=== PATIENT | female | born 2000 | race Two or more races ===

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

== ENCOUNTER 2019-09-08 12:43 | Emergency (ER) | payer OTHER ==
[~2019-09-08] VITALS: Ht 152.4 cm; Wt 51.4 kg
[~2019-09-08 12:43] MED LIST: CEPH500C PO
[2019-09-08] MEDS ORDERED: IV NORMAL SALINE 1,000ML 1,000 ML IV SCH (12:53)
--- NOTE | 2019-09-08 12:57 | PHYS DOC ---
Past History Past Medical History: No Pertinent History Past Surgical History: No Surgical History Alcohol Use: None Drug Use: None General Adult EDM: Chief Complaint: ABDOMINAL PAIN HPI: HPI: Patient is a 19 year old female who presents for evaluation of suprapubic and right lower abdominal discomfort. Onset since this morning but was significantly worse since about 11:30 PM today. Patient complains of some vaginal discharge and some spotting. Patient has nausea but no vomiting. Patient has some burning, urgency and frequency with urination. Patient's last menstrual period was July 02. Patient has not taken a home test. Review of Systems: Review of Systems: Constitutional: Denies fever or chills Eyes: Denies change in visual acuity HENT: Denies nasal congestion or sore throat Respiratory: Denies cough or shortness of breath Cardiovascular: Denies chest pain or edema GI: has abdominal pain and nausea, no vomiting, no bloody stools or diarrhea : has dysuria, some vaginal discharge and spotting Musculoskeletal: Denies back pain or joint pain Integument: Denies rash Neurologic: Denies headache, focal weakness or sensory changes Endocrine: Denies polyuria or polydipsia Lymphatic: Denies swollen glands Psychiatric: Denies depression or anxiety Heart Score: Risk Factors: Risk Factors: DM, Current or recent (<one month) smoker, HTN, HLP, family history of CAD, obesity. Risk Scores: Score 0 - 3: 2.5% MACE over next 6 weeks - Discharge Home Score 4 - 6: 20.3% MACE over next 6 weeks - Admit for Clinical Observation Score 7 - 10: 72.7% MACE over next 6 weeks - Early Invasive Strategies Allergies: Allergies: Allergies Coded Allergies Type Severity Reaction Last Updated Verified No Known Drug Allergies 11/11/18 No Physical Exam: PE: Constitutional: Well developed, well nourished, mild acute distress, non-toxic appearance. [] HENT: Normocephalic, atraumatic, bilateral external ears normal, oropharynx moist, no oral exudates, nose normal. [] Eyes: PERRL, EOMI, conjunctiva normal, no discharge. [] Neck: Normal range of motion, no tenderness, supple [] Cardiovascular:Heart rate regular rhythm, no murmur [] Lungs & Thorax: Bilateral breath sounds clear to auscultation [] Abdomen: Bowel sounds normal, soft, right lower abd tenderness, no masses, no pulsatile masses. [] Skin: Warm, dry, no erythema, no rash. [] Back: No tenderness, no CVA tenderness. [] Extremities: No tenderness, no cyanosis, ROM intact, no edema. [] Neurologic: Alert and oriented X 3, normal motor function, normal sensory function, no focal deficits noted. [] Psychologic: Affect normal, judgement normal, mood normal. 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, white thick discharge present, office closed, no blood present, right adnexal tenderness [] Current Patient Data: Labs: Laboratory Tests Test 09/08/19 12:51 09/08/19 13:09 Urine Collection Type Unknown Urine Color Yellow Urine Clarity Hazy Urine pH 5.5 Urine Specific [place] 1.025 Urine Protein 100 mg/dl Urine Glucose (UA) Neg mg/dL Urine Ketones (Stick) Neg mg/dL Urine Blood Mod Urine Nitrite Neg Urine Bilirubin Neg Urine Urobilinogen Dipstick 0.2 mg/dL Urine Leukocyte Esterase Mod Urine RBC 6-10 /HPF Urine WBC Tntc /HPF Urine Squamous Epithelial Cells Few /LPF Urine Bacteria Few /HPF Urine Mucus Slight /LPF White Blood Count 9.5 x10^3/uL Red Blood Count 4.41 x10^6/uL Hemoglobin 13.6 g/dL Hematocrit 40.0 % Mean Corpuscular Volume 91 fL Mean Corpuscular Hemoglobin 31 pg Mean Corpuscular Hemoglobin Concent 34 g/dL Red Cell Distribution Width 13.2 % Platelet Count 242 x10^3/uL Neutrophils (%) (Auto) 75 % Lymphocytes (%) (Auto) 18 % Monocytes (%) (Auto) 6 % Eosinophils (%) (Auto) 1 % Basophils (%) (Auto) 0 % Neutrophils # (Auto) 7.2 x10^3uL Lymphocytes # (Auto) 1.7 x10^3/uL Monocytes # (Auto) 0.6 x10^3/uL Eosinophils # (Auto) 0.1 x10^3/uL Basophils # (Auto) 0.0 x10^3/uL Sodium Level 138 mmol/L Potassium Level 3.4 mmol/L Chloride Level 104 mmol/L Carbon Dioxide Level 26 mmol/L Anion Gap 8 Blood Urea Nitrogen 8 mg/dL Creatinine 0.7 mg/dL Estimated GFR (Cockcroft-Gault) 106.7 BUN/Creatinine Ratio 11 Glucose Level 94 mg/dL Calcium Level 8.8 mg/dL Total Bilirubin 2.1 mg/dL Aspartate Amino Transf (AST/SGOT) 18 U/L Alanine Aminotransferase (ALT/SGPT) 20 U/L Alkaline Phosphatase 86 U/L Total Protein 7.1 g/dL Albumin 3.9 g/dL Albumin/Globulin Ratio 1.2 Serum Test, Qualitative Negative Current Medications Medications (Trade) Dose Ordered Sig/Narciso Route PRN Reason Start Time Stop Time Status Last Admin Dose Admin Sodium Chloride 1,000 ml @ 1,000 mls/hr Q1H IV 09/08/19 12:53 09/08/19 13:52 DC Ceftriaxone Sodium 1 gm/ Sodium Chloride 50 ml @ 100 mls/hr 1X ONCE IV 09/08/19 14:00 09/08/19 14:29 Azithromycin (Zithromax) 1,000 mg 1X ONCE PO 09/08/19 14:00 09/08/19 14:01 EKG: EKG: [] Radiology/Procedures: Radiology/Procedures: [] Course & Med Decision Making: Course & Med Decision Making Pertinent Labs and Imaging studies reviewed. (See chart for details) [] Dragon Disclaimer: Dragon Disclaimer: This electronic medical record was generated, in whole or in part, using a voice recognition dictation system. 1405 stable, pain controlled at this time. Patient is not . Remainder of lab work is stable. Patient treated for presumed vaginitis. Here at this hospital she received Rocephin and Zithromax. Prescription for Flagyl and D iflucan given. I do not suspect appendicitis based upon location of pain being suprapubic as well as no guarding or rebounding. Patient white blood cell count is normal. Furthermore patient has a bladder infection Departure Departure: Impression: Primary Impression: Suprapubic pain Additional Impressions: Acute UTI Vaginitis Disposition: HOME/RESIDENCE PRIOR TO ADM Condition: STABLE Referrals: PCP,NO (PCP) ANA URIARTE MD Patient Instructions: Urinary Tract Infection, Vaginitis, [id number] Additional Instructions: Pelvic rest for several days or a week until symptoms resolve, drink plenty fluids, take medication as directed. You do have a bladder infection in a ddition to a vaginal discharge. Scripts Cephalexin (CEPHALEXIN) 500 Mg Tablet 1 TAB PO QID for UTI for 7 Days, #28 TAB Prov: GARTH ZAMUDIO DO 09/08/19 Fluconazole (DIFLUCAN) 150 Mg Tablet 1 TAB PO ONCE for vaginitis, #1 TAB 1 Refill Prov: GARTH ZAMUDIO DO 09/08/19 Metronidazole (FLAGYL) 500 Mg Tablet 1 TAB PO BID for vaginitis, #14 TAB Prov: GARTH ZAMUDIO DO 09/08/19 Justification of Admission: Justification of Admission: Justification of Admission Dx: N/A GARTH ZAMUDIO DO Sep 08, 2019 12:57
[2019-09-08 13:12] VITALS: BP 120/81
[2019-09-08 13:27] LABS: BASO % 0 % (0-3); EOS # 0.1 x10^3/uL (0.0-0.7); EOS % 1 % (0-3); HEMOGLOBIN 13.6 g/dL (12.0-15.5); LYMPH # 1.7 x10^3/uL (1.0-4.8); LYMPH % 18 % (24-48); MEAN CORPUSCULAR HEMOGLOBIN 31 pg (25-35); MEAN CORPUSCULAR HGB CONC 34 g/dL (31-37); MEAN CORPUSCULAR VOLUME 91 fL (79-100); MONO # 0.6 x10^3/uL (0.0-1.1); MONO % 6 % (0-9); NEUT # 7.2 x10^3uL (1.8-7.7); NEUT % 75 % (31-73); PLATELET COUNT 242 x10^3/uL (140-400); RED BLOOD COUNT 4.41 x10^6/uL (3.50-5.40); RED CELL DISTRIBUTION WIDTH 13.2 % (11.5-14.5); WHITE BLOOD COUNT 9.5 x10^3/uL (4.0-11.0)
[2019-09-08 13:29] LABS: BILIRUBIN,URINE NEG (NEG); CLARITY,URINE HAZY; COLOR,URINE YELLOW; GLUCOSE,URINE NEG (NEG)
[2019-09-08 13:30] LABS: BACTERIA,URINE FEW /HPF (0-FEW); NITRITE,URINE NEG (NEG); SQUAMOUS EPITHELIAL CELL,UR FEW /LPF; UROBILINOGEN,URINE 0.2 mg/dL (0.2 mg/dL); WBC,URINE TNTC /HPF (0-4)
[2019-09-08 13:39] LABS: PREG TEST PT QUAL NEGATIVE (NEG)
[2019-09-08 13:40] LABS: CALCIUM 8.8 mg/dL (8.5-10.1); CREATININE 0.7 mg/dL (0.6-1.0); GFR 106.7; POTASSIUM 3.4 mmol/L (3.5-5.1)
[2019-09-08 13:47] LABS: ALBUMIN 3.9 g/dL (3.4-5.0); ALBUMIN/GLOBULIN RATIO 1.2 (1.0-1.7); TOTAL BILIRUBIN 2.1 mg/dL (0.2-1.0); TOTAL PROTEIN 7.1 g/dL (6.4-8.2)
[2019-09-08] MEDS ORDERED: AZITHROMYCIN 250 MG TABLET. PO ONE (14:00)
[2019-09-08] MEDS ORDERED: FLUC150T PO (14:15)
[2019-09-08] MEDS ORDERED: CEPH500T PO (14:15)
[2019-09-08] MEDS ORDERED: METR500T PO (14:15)
[2019-09-11 19:08] LABS: CHLAMYDIA PROBE Negative (Negative)
== END 2019-09-08 14:18 | disposition home or self-care (01) ==
LOC: ER 12:43
DX: N39.0 Urinary tract infection, site not specified (principal); N76.0 Acute vaginitis
CPT/HCPCS: 80053; 81001; 84703; 85025; 87086; 87491; 87591; 99283; Q0111; 36415

== ENCOUNTER 2020-01-16 10:39 | Emergency (ER) | payer OTHER ==
[~2020-01-16] VITALS: Ht 152.4 cm; Wt 51.0 kg
[~2020-01-16 10:39] MED LIST changes: +CEPH500T PO; +FLUC150T PO; +METR500T PO
[2020-01-16 11:08] VITALS: BP 116/83
[2020-01-16 12:55] LABS: U PREG PATIENT NEGATIVE (NEG)
[2020-01-16 13:03] LABS: CLARITY,URINE BLOODY; COLOR,URINE RED
[2020-01-16 13:05] LABS: BACTERIA,URINE MANY /HPF (0-FEW); RBC,URINE >40 /HPF (0-2); SQUAMOUS EPITHELIAL CELL,UR FEW /LPF; WBC,URINE >40 /HPF (0-4)
[2020-01-16] MEDS ORDERED: NITR100C62 PO (13:36)
--- NOTE | 2020-01-16 13:37 | PHYS DOC ---
Past History Past Medical History: No Pertinent History, UTI Past Surgical History: No Surgical History Alcohol Use: None Drug Use: None Adult General Chief Complaint Chief Complaint: PAIN ON URINATION HPI HPI Patient is a 19-year-old female who presents for pain on urination. Reports history of UTIs only and states this feels identical to previous UTIs. Reports symptoms started approximately 24 hours ago but developed hematuria this morning. Reports dysuria without any other concerning signs or symptoms such as visual excoriations, lesions, vaginal discharge or recent vaginal trauma. Patient is sexually active, no concern for STIs at this time. Patient does not have history of kidney stones, not on any blood thinners. Review of Systems Review of Systems Fourteen body systems of review of systems have been reviewed. See HPI for pertinent positives and negative responses, other schafer all other systems are negative, non-pertinent or non-contributory Allergies Allergies Allergies Coded Allergies Type Severity Reaction Last Updated Verified No Known Drug Allergies 11/11/18 No Physical Exam Physical Exam Constitutional: Well developed, well nourished, no acute distress, non-toxic appearance. HENT: Normocephalic, atraumatic, bilateral external ears normal, oropharynx moist, no oral exudates, nose normal. Eyes: PERRLA, EOMI, conjunctiva normal, no discharge. Neck: Normal range of motion, no tenderness, supple, no stridor. Cardiovascular: Heart rate regular, sinus rhythm, no murmurs rubs or gallops Lungs & Thorax: Bilateral breath sounds clear to auscultation Abdomen: Bowel sounds normal, soft, suprapubic tenderness, no masses, no pulsatile masses. Nonsurgical abdomen, no peritoneal signs Skin: Warm, dry, no erythema, no rash. Back: No tenderness, no CVA tenderness. Extremities: No tenderness, no cyanosis, no clubbing, ROM intact, no edema. Neurologic: Alert and oriented X 3, grossly normal motor & sensory function, no focal deficits noted. Psychologic: Affect normal, judgement normal, mood normal. Current Patient Data Vital Signs Vital Signs Date Time Temp Pulse Resp B/P (MAP) Pulse Ox O2 Delivery O2 Flow Rate FiO2 01/16/20 11:08 98.8 92 18 116/83 (94) 99 Room Air Lab Results Laboratory Tests Test 01/16/20 11:30 01/16/20 12:08 Urine Test Negative (NEG) Urine Collection Type Unknown Urine Color Red Urine Clarity Bloody Urine pH Urine Specific [place] Urine Protein (NEG-TRACE) Urine Glucose (UA) mg/dL (NEG) Urine Ketones (Stick) mg/dL (NEG) Urine Blood Large (NEG) Urine Nitrite (NEG) Urine Bilirubin (NEG) Urine Urobilinogen Dipstick mg/dL (0.2 mg/dL) Urine Leukocyte Esterase (NEG) Urine RBC >40 /HPF (0-2) Urine WBC >40 /HPF (0-4) Urine Squamous Epithelial Cells Few /LPF Urine Transitional Epithelial Cells Few /LPF Urine Bacteria Many /HPF (0-FEW) Urine Mucus Slight /LPF EKG EKG [] Radiology/Procedures Radiology/Procedures [] Heart Score Risk Factors: Risk Factors: DM, Current or recent (<one month) smoker, HTN, HLP, family history of CAD, obesity. Risk Scores: Risk Factors: DM, Current or recent (<one month) smoker, HTN, HLP, family history of CAD, obesity. Course & Med Decision Making Course & Med Decision Making Pertinent Labs and Imaging studies reviewed. (See chart for details) Discussed most likely diagnosis of simple UTI inpatient who is low risk with symptomology consistent with prior UTIs. I disclosed without further diagnostic work-up and/or pelvic exam I could not exclude other potential diagnoses such as STDs, retained vaginal foreign body etc. She is aware this and has good PCP follow-up in outpatient setting With that said, I feel comfortable treating patient simple UTI with Macrobid, she has taken in the past and tolerated it with full improvement in symptoms Strict return precautions were discussed with good understanding by patient, all questions and concerns addressed prior to ER departure in stable condition Dragon Disclaimer Dragon Disclaimer This electronic medical record was generated, in whole or in part, using a voice recognition dictation system. Departure Departure: Impression: Primary Impression: Hematuria Additional Impression: UTI (urinary tract infection) Disposition: 01 DC HOME SELF CARE/HOMELESS Condition: STABLE Referrals: PCP,NO (PCP) Patient Instructions: Hematuria-Brief, Urinary Tract Infection Additional Instructions: As instructed prior to ER departure, please call your primary care physician on post to schedule outpatient follow-up in upcoming 5 to 10 days for repeat examination and to ensure symptomatic improvement Please take prescribed antibiotic as instructed to completion If any concerning signs or symptoms present prior to outpatient follow-up please do not hesitate to come back for repeat evaluation It was a pleasure to take care of you and I wish you a speedy recovery! Scripts Nitrofurantoin Monohyd/M-Cryst (MACROBID 100 MG CAPSULE) 100 Mg Capsule 1 CAP PO BID for UTI for 5 Days, #10 CAP 0 Refills Prov: GALEN MONAE DO 01/16/20 Problem Qualifiers GALEN MONAE DO Jan 16, 2020 13:37
[2020-01-16] MEDS ORDERED: NITROFURANTOIN MONOHYD/M-CRYST 100 MG CAPSULE. PO ONE (13:45)
== END 2020-01-16 13:41 | disposition home or self-care (01) ==
LOC: ER 10:39
DX: N39.0 Urinary tract infection, site not specified (principal); Z87.440 Personal history of urinary (tract) infections
CPT/HCPCS: 81001; 81025; 87086; 99283